=== PATIENT | male | born 1970 | race African-American/Black ===

== ENCOUNTER 2019-08-24 13:52 | Emergency (ER) | payer SELFPAY ==
[2019-08-24 14:46] LABS: #Lymphocytes 0.8 thou/uL (1.20-3.40); #Monocytes 0.4 thou/uL (0.11-0.59); #Neutrophils 5.5 thou/uL (1.40-6.50); %Basophils 0.5 % (0.0-1.0); %Eosinophils 0.3 % (0.0-10.0); %Lymphocytes 12.4 % (21.0-51.0); %Monocytes 5.4 % (0.0-10.0); %Neutrophils 81.4 % (42.0-75.0); Hemoglobin 12.1 g/dL (14.0-18.0); Mean Corpuscular HGB CONC 30.9 g/dL (32.0-36.0); Mean Corpuscular Hemoglobin 29.8 pg (27.0-31.0); Mean Corpuscular Volume 96.2 fL (78.0-98.0); Mean Platelet Volume 7.6 fL (7.4-10.4); Platelet Count 358 thou/uL (130-400); RBC Distribution Width 13.3 % (11.5-14.5); Red Blood Cell (RBC) Count 4.05 mill/uL (4.70-6.10); White Blood Cell (WBC) Count 6.8 thou/uL (4.8-10.8)
[2019-08-24 15:09] LABS: ALT (SGPT) 40 U/L (8-55); AST (SGOT) 35 U/L (5-34); Albumin 3.5 g/dL (3.5-5.0); Alkaline Phosphatase 64 U/L (40-110); Anion Gap 14 mmol/L (10-20); BUN (Urea Nitrogen) 6 mg/dL (8.4-25.7); Bilirubin, Total 0.3 mg/dL (0.2-1.2); Calc. Creatinine Clearance 0 mL/min (70-130); Calcium 9.2 mg/dL (7.8-10.44); Carbon Dioxide 23 mmol/L (22-29); Chloride 105 mmol/L (98-107); Estimated GFR-MDRD Greater than 90; Globulin 4.1 g/dL (2.4-3.5); Glucose 85 mg/dL (70-105); Potassium 3.8 mmol/L (3.5-5.1); Protein, Total 7.6 g/dL (6.0-8.3); Sodium 138 mmol/L (136-145)
== END 2019-08-24 16:25 | disposition short-term general hospital (02) ==
LOC: NAV ERS 13:52
DX: M79.89 Other specified soft tissue disorders (principal); M79.661 Pain in right lower leg; R79.1 Abnormal coagulation profile; F17.200 Nicotine dependence, unspecified, uncomplicated
CPT/HCPCS: 36415; 80053; 83605; 85025; 85379; 86140; 94760

== ENCOUNTER 2019-09-09 08:44 | Emergency (ER) | payer SELFPAY | END 2019-09-09 09:19 | disposition home or self-care (01) | LOC: NAV ERS 08:44 | DX: M79.671 Pain in right foot (principal); I10 Essential (primary) hypertension; F17.210 Nicotine dependence, cigarettes, uncomplicated | CPT/HCPCS: 99283 ==

== ENCOUNTER 2019-09-30 19:12 | Emergency (ER) | payer SELFPAY ==
[2019-09-30] MEDS ORDERED: Ibuprofen 800 MG TAB ONE (19:58)
--- NOTE | 2019-09-30 21:05 | RAD ---
RADIOGRAPH LEFT FIRST DIGIT THREE VIEWS: DATE: 09-30-2019 TIME: 8:04 p.m. History: 49-year-old male with left thumb pain. FINDINGS: There is a subtle finding of faint, questionable linear lucency horizontally across the proximal meta physis of the first distal phalanx with mild soft tissue swelling. No radiopaque foreign body or subc utaneous emphysema. No dislocation. Mild DJD at first MCP and first IP joints. IMPRESSION: Possible nondisplaced transverse fracture at the base of the first distal phalanx of the left thumb. POS: JIN
== END 2019-09-30 20:38 | disposition home or self-care (01) ==
LOC: NAV ERS 19:12
DX: S60.011A Contusion of right thumb without damage to nail, initial encounter (principal); I10 Essential (primary) hypertension; F17.210 Nicotine dependence, cigarettes, uncomplicated; W22.8XXA Striking against or struck by other objects, initial encounter

== ENCOUNTER 2020-03-16 10:16 | Emergency (ER) | payer SELFPAY ==
[2020-03-16 21:01] LABS: SARS-CoV-2 MS2 Positive; SARS-CoV-2 N Gene Negative; SARS-CoV-2 S Gene Negative; SARS-CoV-2 by NAA Not Detected (NotDetected); SARS-CoV-2 orf1ab Negative
== END 2020-03-16 12:17 | disposition home or self-care (01) ==
LOC: NAV ERS 10:16
DX: Z20.828 Contact with and (suspected) exposure to other viral communicable diseases (principal); F17.210 Nicotine dependence, cigarettes, uncomplicated; Z87.01 Personal history of pneumonia (recurrent)
CPT/HCPCS: 87635; 99283; U0003